=== PATIENT | female | born 1975 | race Caucasian/White ===

== ENCOUNTER 2020-10-02 00:47 | Emergency (ER) | payer MEDICARE, MEDICAID, SELFPAY ==
[2020-10-02 00:54] VITALS: BP 98/64; PULSE 76; RESP 15; TEMP 36.7; O2SAT 98; BMI 21.7
--- NOTE | 2020-10-02 00:59 | CTR_ITS ---
PROCEDURE INFORMATION: Exam: CT Head Without Contrast Exam date and time: 10/02/2020 1:04 AM Age: 45 years old Clinical indication: Altered mental status/memory loss; Patient HX: AMS. Weakness. Hypotensive. TECHNIQUE: Imaging protocol: Computed tomography of the head without contrast. Radiation optimization: All CT scans at this facility use at least one of these dose optimization techniques: automated exposure control; mA and/or kV adjustment per patient size (includes targeted exams where dose is matched to clinical indication); or iterative reconstruction. COMPARISON: No relevant prior studies available. RADIATION DOSE METRICS: Total DLP (mGy-cm): 800.72 FINDINGS: Brain: Normal. No hemorrhage. Unremarkable white matter. No mass effect. Cerebral ventricles: No ventriculomegaly. Bones/joints: No acute findings. Paranasal sinuses: Paranasal sinus mucosal thickening noted. Mastoid air cells: Visualized mastoid air cells are well aerated. Soft tissues: Unremarkable. CT/CT head wo con* [id number] IMPRESSION: No acute intracranial abnormality. Radiation Dose CTDIVOL = (mGy): DLP = 800.72 (mGy-cm)
--- NOTE | 2020-10-02 00:59 | XRR_ITS ---
PROCEDURE INFORMATION: Exam: XR Chest Exam date and time: 10/02/2020 1:04 AM Age: 45 years old Clinical indication: Other: AMS; Additional info: SOB TECHNIQUE: Imaging protocol: XR of the chest. Views: 1 view. COMPARISON: CR Chest 1 [place] [id number] 04/24/2017 8:05 PM FINDINGS: Lungs: Calcified pulmonary granulomatous change. Pleural spaces: Unremarkable. No pleural effusion. No pneumothorax. Heart/Mediastinum: Calcified granulomatous changes are noted in mediastinal and hilar lymph nodes. Bones/joints: Proximal left humerus fracture does not appear displaced on frontal view of chest. Soft tissues: Soft tissue or fluid convexity or prominence of right heart border; relative change from prior study may relate to some rotation to the right and short interval follow-up using PA and lateral views recommended. XR/XR chest 1V portable [id number] IMPRESSION: Proximal left humerus fracture. Contour bulge at right pericardiophrenic angle as above possibly new or more accentuated from prior study possibly as result of rotation to the right; follow-up PA and lateral views recommended.
--- NOTE | 2020-10-02 01:01 | ECG_ITS ---
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 Measurements Intervals Lerna Rate: 72 P: 62 NC: 159 QRS: 63 QRSD: 84 T: 65 QT: 380 QTc: 416 Interpretive Statements SINUS RHYTHM Compared to ECG 02/07/2017 05:44:54 T-wave abnormality no longer present Possible ischemia no longer present Electronically Signed On 10-02-2020 19:26:34 CDT by Orestes Montoya M.D. [email or web address]
--- NOTE | 2020-10-02 01:09 | XRR_ITS ---
PROCEDURE INFORMATION: Exam: XR Left Shoulder Exam date and time: 10/02/2020 1:09 AM Age: 45 years old Clinical indication: Shoulder; Left; Patient HX: Patient states fall last Tuesday. C/O pain. Unable to ambulate arm. Best films obtained. ; Additional info: Injury TECHNIQUE: Imaging protocol: XR Left shoulder. Views: 2 or more views. COMPARISON: No relevant prior studies available. FINDINGS: Bones/joints: Nondisplaced fracture of surgical neck of left humerus noted. Mild inferior subluxation at glenohumeral joint. Soft tissues: Normal. XR/XR shoulder LT min 2V* [id number] IMPRESSION: Proximal humeral fracture and mild inferior glenohumeral subluxation
--- NOTE | 2020-10-02 01:28 | XRR_ITS ---
PROCEDURE INFORMATION: Exam: XR Right Foot Exam date and time: 10/02/2020 1:31 AM Age: 45 years old Clinical indication: Foot; Right; Patient HX: C/O pain; Additional info: Fall TECHNIQUE: Imaging protocol: XR Right foot. Views: 3 or more views. COMPARISON: No relevant prior studies available. FINDINGS: Bones/joints: Normal. Soft tissues: Normal. XR/XR foot RT min 3V* [id number] IMPRESSION: No acute findings.
--- NOTE | 2020-10-02 01:28 | XRR_ITS ---
PROCEDURE INFORMATION: Exam: XR Right Ankle Exam date and time: 10/02/2020 1:31 AM Age: 45 years old Clinical indication: Ankle; Right; Patient HX: C/O pain; Additional info: Fall TECHNIQUE: Imaging protocol: XR Right ankle. Views: 3 or more views. COMPARISON: No relevant prior studies available. FINDINGS: Bones/joints: Mild irregularity of the cortical contour laterally at lateral malleolus raises suggestion of age-indeterminate nondisplaced fracture. No ankle mortise disruption. Soft tissues: Soft tissue swelling seen over lateral malleolus. XR/XR ankle RT min 3V* [id number] IMPRESSION: Findings suggesting age-indeterminate nondisplaced fracture changes laterally at lateral malleolus.
[2020-10-02 01:33] LABS: Glucose Point of Care 207 mg/dL (70-110)
[2020-10-02 01:36] LABS: ABG PCO2 41.9 mmHg (35-45); ABG PH Result 7.48 (7.35-7.45); Arterial Blood Gas Hematocrit 27.9 % (37-47); Base Excess ABG 6.8 mmol/L (-2.0-2.0); Blood Gas Sample Site Brachial, right; Blood Gas Sample Type Arterial; Oxygen Device ROOM AIR; PO2 ABG 78.8 mmHg (80.0-100.0)
[2020-10-02 01:37] VITALS: BP 118/80; PULSE 88; RESP 16; TEMP 36.7; O2SAT 99
[2020-10-02 01:45] VITALS: PULSE 86
--- NOTE | 2020-10-02 02:29 | ED_ITS ---
HPI - Weakness General: Chief complaint: Weakness Stated complaint: HYPOTENSION Time Seen by Provider: 10/02/20 00:54 Source: patient and EMS Mode of arrival: EMS Limitations: no limitations History of Present Illness: HPI Narrative: 45-year-old female who is here from local halfway. Patient states she is serving last day of her sentence which is a week long sentence. She states that today her blood sugars ran high and she felt weak and fell. She denies passing out. States she landed on her left shoulder and has left shoulder pain she rates a 7 out of 10. She also has some ankle pain in her right ankle. She denies any chest or abdominal pain. Denies any neck pain. Denies any fever. Associated symptoms: Denies chest pain, chills, dysuria, easy bruising, fever(s), headache(s), nausea or vomiting Review of Systems Const: Denies: fever(s), chills, body aches or change in appetite Eyes: Denies: blurry vision or eye discomfort ENMT: Denies: throat pain or dental pain Card: Denies: chest pain Resp: Denies: dyspnea GI: Denies: abdominal pain, nausea, vomiting or diarrhea : Denies: dysuria Musc: Reports: extremity pain; Denies: neck pain or back pain Skin/Breast: Denies: rash Neuro: Denies: headache(s) Psych: Denies: depression Jose/Lymph: Denies: easy bruising All/Imm: Denies: urticaria Physical Exam Const: COMMON NORMALS: no acute distress, patient oriented x3 and healthy appearing HENMT: COMMON NORMALS: normocephalic and atraumatic HEAD & SCALP: normocephalic and atraumatic Eye: COMMON NORMALS: Equal, round and reactive pupils present and EOMs intact bilaterally PUPIL: Yes Equal, round and reactive pupils present Neck/C-Spine: COMMON NORMALS: full ROM and supple Chest: COMMONS NORMALS: normal inspection of the chest and normal palpation of entire chest wall Resp: COMMON NORMALS: normal respiratory effort, No retractions, No use of accessory muscles and clear to auscultation bilaterally AUSCULTATION: clear to auscultation bilaterally Cardio: COMMON NORMALS: regular rate, regular rhythm and No murmurs present (Cardio) RATE: regular rate RHYTHM: regular rhythm GI: COMMON NORMALS: Normal to inspection, nondistended, normoactive bowel sounds present, Soft to palpation, non-tender and no masses PALPATION: Yes Soft to palpation Extremity: NARRATIVE EXTREMITY EXAM: Patient has some tenderness over the lateral portion of her right ankle no obvious deformity or swelling. Patient also has tenderness to the left shoulder. Distal pulses intact. No step-off Neuro: COMMON NORMALS: patient oriented x3, moves all extremities and no focal motor deficits Psych: COMMON NORMALS: mental status grossly normal, Normal thought process pr esent and cooperative THOUGHT PROCESS: Normal thought process present Skin: COMMON NORMALS: no rashes or lesions noted and no wounds GENERAL SKIN EXAM: no rashes or lesions noted Course Vital Signs: Vital signs: Vital Signs Temperature 98.1 F 10/02/20 00:54 Pulse Rate 76 10/02/20 00:54 Respiratory Rate 18 10/02/20 05:00 Blood Pressure 98/64 10/02/20 00:54 Pulse Oximetry 98 10/02/20 05:00 MDM - Weakness MDM Narrative: Medical decision making narrative: Presents here with a fall from gel. She does have an ankle fracture along with a humerus fracture from her fall. Her head CT here is normal. She has no other signs of injuries. Her blood pressure here has been stable and her blood work is all stable as well. Patient slightly anemic but no signs of active bleeding or blood pressures here been normal. No chest or abdominal pain noted. Patient placed in a sling for her humerus and placed in a splint for her ankle fracture. She is requesting discharge at this point as she is released from halfway. Patient discharged with family and she is to follow-up with peds. She understands agrees to plan. Lab Data: Labs: Lab Results 10/02/20 10/02/20 10/02/20 Range/Units 01:25 01:27 03:08 WBC 10.1 H (4.0-10.0) 10^3/ uL RBC 3.39 L (4.1-5.3) 10^6/u L Hgb 8.9 L (11.5-15.3) g/dL Hct 26.5 L (37.0-47.0) % MCV 78.2 L (81-99) fL MCH 26.3 L (28.0-34.0) pg MCHC 33.6 (30.0-36.0) g/dL RDW 13.5 (12.1-15.1) % Plt Count 180 (130-400) 10^3/c mm MPV 10.3 (7.4-10.4) fL Neut % (Auto) 64.0 % Lymph % (Auto) 22.7 % Alpine % (Auto) 11.4 % Eos % (Auto) 1.0 % Baso % (Auto) 0.4 % Neut # (Auto) 6.45 (1.8-7.7) 10^3/u L Lymph # (Auto) 2.3 (0.8-4.8) 10^3/u L Alpine # (Auto) 1.2 H (0.2-0.9) 10^3/u L Eos # (Auto) 0.1 (0.0-0.8) 10^3/u L Baso # (Auto) 0.0 (0.0-0.1) 10^3/u L Nucleated RBC % (a uto) 0 % Nucleated RBCs # 0.0 /100WBC Specimen Type Arterial Sample Site Brachial, right ABG pH 7.48 H (7.35-7.45) ABG pCO2 41.9 (35-45) mmHg ABG pO2 78.8 L (80.0-100.0) mmH g ABG HCO3 31.0 H (22-26) mmol/L ABG Base Excess 6.8 H (-2.0-2.0) mmol/ L Ricardo Test N/a Hematocrit 27.9 L (37-47) % O2 Delivery Device Room air FiO2 21.0 % Financial Sales Manager ID Jlg Sodium (136-145) mmol/L Potassium (3.5-5.1) mmol/L Chloride (98-107) mmol/L Carbon Dioxide (22-29) mmol/L Anion Gap (5-19) BUN (6-20) mg/dL Creatinine (0.5-0.9) mg/dL GFR Calculation (90-130) mL/min Glucose (65-115) mg/dL POC Glucose 207 H (70-110) mg/dL Calculated Osmolal ity (285-295) mOsm/k g Lactate (0.5-2.2) mmol/L Calcium (8.5-10.5) mg/dL Magnesium (1.7-2.3) mg/dL Total Bilirubin (0.15-1.2) mg/dL AST (0-32) U/L ALT (0-33) U/L Alkaline Phosphata se (35-105) IU/L Total Protein (6.6-8.7) g/dL Albumin (3.5-5.2) g/dL Globulin (1.3-4.6) g/dL Ethyl Alcohol (0-10) mg/dL Serum Ketones (Negative) 10/02/20 10/02/20 10/02/20 Range/Units 03:08 03:08 03:08 WBC (4.0-10.0) 10^3/ uL RBC (4.1-5.3) 10^6/u L Hgb (11.5-15.3) g/dL Hct (37.0-47.0) % MCV (81-99) fL MCH (28.0-34.0) pg MCHC (30.0-36.0) g/dL RDW (12.1-15.1) % Plt Count (130-400) 10^3/c mm MPV (7.4-10.4) fL Neut % (Auto) % Lymph % (Auto) % Alpine % (Auto) % Eos % (Auto) % Baso % (Auto) % Neut # (Auto) (1.8-7.7) 10^3/u L Lymph # (Auto) (0.8-4.8) 10^3/u L Alpine # (Auto) (0.2-0.9) 10^3/u L Eos # (Auto) (0.0-0.8) 10^3/u L Baso # (Auto) (0.0-0.1) 10^3/u L Nucleated RBC % (a uto) % Nucleated RBCs # /100WBC Specimen Type Sample Site ABG pH (7.35-7.45) ABG pCO2 (35-45) mmHg ABG pO2 (80.0-100.0) mmH g ABG HCO3 (22-26) mmol/L ABG Base Excess (-2.0-2.0) mmol/ L Ricardo Test Hematocrit (37-47) % O2 Delivery Device FiO2 % Financial Sales Manager ID Sodium 134 L (136-145) mmol/L Potassium 3.7 (3.5-5.1) mmol/L Chloride 98 (98-107) mmol/L Carbon Dioxide 28 (22-29) mmol/L Anion Gap 11.7 (5-19) BUN 13 (6-20) mg/dL Creatinine 0.7 (0.5-0.9) mg/dL GFR Calculation 89.7 L (90-130) mL/min Glucose 221 H (65-115) mg/dL POC Glucose (70-110) mg/dL Calculated Osmolal ity 285 (285-295) mOsm/k g Lactate 0.6 (0.5-2.2) mmol/L Calcium 7.9 L (8.5-10.5) mg/dL Magnesium 1.9 (1.7-2.3) mg/dL Total Bilirubin 0.5 (0.15-1.2) mg/dL AST 8 (0-32) U/L ALT 6 (0-33) U/L Alkaline Phosphata se 113 H (35-105) IU/L Total Protein 6.0 L (6.6-8.7) g/dL Albumin 2.6 L (3.5-5.2) g/dL Globulin 3.4 (1.3-4.6) g/dL Ethyl Alcohol < 10 (0-10) mg/dL Serum Ketones Negative (Negative) 10/02/20 Range/Units 03:32 WBC (4.0-10.0) 10^3/ uL RBC (4.1-5.3) 10^6/u L Hgb (11.5-15.3) g/dL Hct (37.0-47.0) % MCV (81-99) fL MCH (28.0-34.0) pg MCHC (30.0-36.0) g/dL RDW (12.1-15.1) % Plt Count (130-400) 10^3/c mm MPV (7.4-10.4) fL Neut % (Auto) % Lymph % (Auto) % Alpine % (Auto) % Eos % (Auto) % Baso % (Auto) % Neut # (Auto) (1.8-7.7) 10^3/u L Lymph # (Auto) (0.8-4.8) 10^3/u L Alpine # (Auto) (0.2-0.9) 10^3/u L Eos # (Auto) (0.0-0.8) 10^3/u L Baso # (Auto) (0.0-0.1) 10^3/u L Nucleated RBC % (a uto) % Nucleated RBCs # /100WBC Specimen Type Sample Site ABG pH (7.35-7.45) ABG pCO2 (35-45) mmHg ABG pO2 (80.0-100.0) mmH g ABG HCO3 (22-26) mmol/L ABG Base Excess (-2.0-2.0) mmol/ L Ricardo Test Hematocrit (37-47) % O2 Delivery Device FiO2 % Financial Sales Manager ID Sodium (136-145) mmol/L Potassium (3.5-5.1) mmol/L Chloride (98-107) mmol/L Carbon Dioxide (22-29) mmol/L Anion Gap (5-19) BUN (6-20) mg/dL Creatinine (0.5-0.9) mg/dL GFR Calculation (90-130) mL/min Glucose (65-115) mg/dL POC Glucose 220 H (70-110) mg/dL Calculated Osmolal ity (285-295) mOsm/k g Lactate (0.5-2.2) mmol/L Calcium (8.5-10.5) mg/dL Magnesium (1.7-2.3) mg/dL Total Bilirubin (0.15-1.2) mg/dL AST (0-32) U/L ALT (0-33) U/L Alkaline Phosphata se (35-105) IU/L Total Protein (6.6-8.7) g/dL Albumin (3.5-5.2) g/dL Globulin (1.3-4.6) g/dL Ethyl Alcohol (0-10) mg/dL Serum Ketones (Negative) Imaging Data^: CT Head: Radiologist's impression: [address] [address] [address] Scan Report Signed Patient: Audrey Bentley I Unit #: [id number] : 1975 Age/Sex: 45 / F ADM Date: 10/02/20 Loc: ER Room/Bed: Attending Dr: Ordering Provider/Ordering MD: Amarjit Resendez MD Date of Service: 10/02/20 Procedure(s): CT head wo con* [id number] Accession Number(s): [id number] Report Number: [id number] PROCEDURE INFORMATION: Exam: CT Head Without Contrast Exam date and time: 10/02/2020 1:04 AM Age: 45 years old Clinical indication: Altered mental status/memory loss; Patient HX: AMS. Weakness. Hypotensive. TECHNIQUE: Imaging protocol: Computed tomography of the head without contrast. Radiation optimization: All CT scans at this facility use at least one of these dose optimization techniques: automated exposure control; mA and/or kV adjustment per patient size (includes targeted exams where dose is matched to clinical indication); or iterative reconstruction. COMPARISON: No relevant prior studies available. RADIATION DOSE METRICS: Total DLP (mGy-cm): 800.72 FINDINGS: Brain: Normal. No hemorrhage. Unremarkable white matter. No mass effect. Cerebral ventricles: No ventriculomegaly. Bones/joints: No acute findings. Paranasal sinuses: Paranasal sinus mucosal thickening noted. Mastoid air cells: Visualized mastoid air cells are well aerated. Soft tissues: Unremarkable. CT/CT head wo con* [id number] IMPRESSION: No acute intracranial abnormality. CXR: Radiologist's impression: [address] [address] XRay Report Signed Patient: Audrey Bentley I Unit #: [id number] : 1975 Age/Sex: 45 / F ADM Date: 10/02/20 Loc: ER Room/Bed: Attending Dr: Ordering Provider/Ordering MD: Amarjit Resendez MD Date of Service: 10/02/20 Procedure(s): XR chest 1V portable [id number] Accession Number(s): [id number] Report Number: [id number] PROCEDURE INFORMATION: Exam: XR Chest Exam date and time: 10/02/2020 1:04 AM Age: 45 years old Clinical indication: Other: AMS; Additional info: SOB TECHNIQUE: Imaging protocol: XR of the chest. Views: 1 view. COMPARISON: CR Chest 1 [place] [id number] 04/24/2017 8:05 PM FINDINGS: Lungs: Calcified pulmonary granulomatous change. Pleural spaces: Unremarkable. No pleural effusion. No pneumothorax. Heart/Mediastinum: Calcified granulomatous changes are noted in mediastinal and hilar lymph nodes. Bones/joints: Proximal left humerus fracture does not appear displaced on frontal view of chest. Soft tissues: Soft tissue or fluid convexity or prominence of right heart border; relative change from prior study may relate to some rotation to the right and short interval follow-up using PA and lateral views recommended. XR/XR chest 1V portable [id number] IMPRESSION: Proximal left humerus fracture. Contour bulge at right pericardiophrenic angle as above possibly new or more accentuated from prior study possibly as result of rotation to the right; follow-up PA and lateral views recommended. xr l shoulder: Radiologist's impression: [address] [place] [address] XRay Report Signed Patient: Audrey Bentley I Unit #: [id number] : 1975 Age/Sex: 45 / F ADM Date: 10/02/20 Loc: ER Room/Bed: Attending Dr: Ordering Provider/Ordering MD: Amarjit Resendez MD Date of Service: 10/02/20 Procedure(s): XR shoulder LT min 2V* [id number] Accession Number(s): [id number] Report Number: [id number] PROCEDURE INFORMATION: Exam: XR Left Shoulder Exam date and time: 10/02/2020 1:09 AM Age: 45 years old Clinical indication: Shoulder; Left; Patient HX: Patient states fall last Tuesday. C/O pain. Unable to ambulate arm. Best films obtained. ; Additional info: Injury TECHNIQUE: Imaging protocol: XR Left shoulder. Views: 2 or more views. COMPARISON: No relevant prior studies available. FINDINGS: Bones/joints: Nondisplaced fracture of surgical neck of left humerus noted. Mild inferior subluxation at glenohumeral joint. Soft tissues: Normal. XR/XR shoulder LT min 2V* [id number] IMPRESSION: Proximal humeral fracture and mild inferior glenohumeral subluxation xr right foot: Radiologist's impression: [facility] [address] [place] [address] XRay Report Signed Patient: Audrey Bentley I Unit #: [id number] : 1975 Age/Sex: 45 / F ADM Date: 10/02/20 Loc: ER Room/Bed: Attending Dr: Ordering Provider/Ordering MD: Amarjit Resendez MD Date of Service: 10/02/20 Procedure(s): XR foot RT min 3V* [id number] Accession Number(s): [id number] Report Number: [id number] PROCEDURE INFORMATION: Exam: XR Right Foot Exam date and time: 10/02/2020 1:31 AM Age: 45 years old Clinical indication: Foot; Right; Patient HX: C/O pain; Additional info: Fall TECHNIQUE: Imaging protocol: XR Right foot. Views: 3 or more views. COMPARISON: No relevant prior studies available. FINDINGS: Bones/joints: Normal. Soft tissues: Normal. XR/XR foot RT min 3V* [id number] IMPRESSION: No acute findings. xr r ankle: Radiologist's impression: [address] [place] [address] XRay Report Signed Patient: Audrey Bentley I Unit #: [id number] : 1975 Age/Sex: 45 / F ADM Date: 10/02/20 Loc: ER Room/Bed: Attending Dr: Ordering Provider/Ordering MD: Amarjit Resendez MD Date of Service: 10/02/20 Procedure(s): XR ankle RT min 3V* [id number] Accession Number(s): [id number] Report Number: [id number] PROCEDURE INFORMATION: Exam: XR Right Ankle Exam date and time: 10/02/2020 1:31 AM Age: 45 years old Clinical indication: Ankle; Right; Patient HX: C/O pain; Additional info: Fall TECHNIQUE: Imaging protocol: XR Right ankle. Views: 3 or more views. COMPARISON: No relevant prior studies available. FINDINGS: Bones/joints: Mild irregularity of the cortical contour laterally at lateral malleolus raises suggestion of age-indeterminate nondisplaced fracture. No ankle mortise disruption. Soft tissues: Soft tissue swelling seen over lateral malleolus. XR/XR ankle RT min 3V* [id number] IMPRESSION: Findings suggesting age-indeterminate nondisplaced fracture changes laterally at lateral malleolus. Discharge Plan Discharge Patient Disposition: Home Clinical Impression: Closed left humeral fracture Qualifiers: Encounter type: initial encounter Humerus Location: proximal Fracture morphology: unspecified fracture morphology Qualified Code(s): S42.202A - Unspecified fracture of upper end of left humerus, initial encounter for closed fracture Ankle fracture, right Qualifiers: Encounter type: initial encounter Fracture type: closed Qualified Code(s): S82.891A - Other fracture of right lower leg, initial encounter for closed fracture Condition: Stable Prescriptions: New hydrocodone-acetaminophen 5-325 mg tablet 1 tab PO Q6H PRN (Reason: pain) Qty: 14 RF: 0 Discharge Orders: Discharge ED (Routine); Ordered 10/02/20 Ordered By: Amarjit Resendez Referrals: Anali Luciano FNP [Primary Care Provider] - Saurabh Villela MD [Physician] - 1-3 days Discharge Diet: Advance as tolerated Discharge Activity: Resume usual activity Patient Instructions: Arm Fracture in Children (ED), Opioid Safety Coding Level of Care Code ED Teacher [employer] Emotionally Disturbed for Nellie Carbone
[2020-10-02 03:17] LABS: Basophils % 0.4 %; Eosinophils # 0.1 10^3/uL (0.0-0.8); Hematocrit 26.5 % (37.0-47.0); Hemoglobin 8.9 g/dL (11.5-15.3); Lymphocytes # 2.3 10^3/uL (0.8-4.8); Lymphocytes % 22.7 %; Mean Corpuscular HGB Conc 33.6 g/dL (30.0-36.0); Mean Corpuscular Hemoglobin 26.3 pg (28.0-34.0); Mean Corpuscular Volume 78.2 fL (81-99); Mean Platelet Volume 10.3 fL (7.4-10.4); Monocytes # 1.2 10^3/uL (0.2-0.9); Monocytes % 11.4 %; Neutrophils # 6.45 10^3/uL (1.8-7.7); Nucleated Red Blood Cells % 0 %; Platelet Count 180 10^3/cmm (130-400); Red Blood Count 3.39 10^6/uL (4.1-5.3); Red Cell Distribution Width 13.5 % (12.1-15.1); White Blood Count 10.1 10^3/uL (4.0-10.0)
[2020-10-02 03:25] LABS: Ketone (Acetest) Serum Negative (Negative)
[2020-10-02 03:30] VITALS: BP 110/72; PULSE 81; RESP 18; TEMP 36.6; O2SAT 99
[2020-10-02 03:34] LABS: Alanine Aminotransferase 6 U/L (0-33); Albumin Level 2.6 g/dL (3.5-5.2); Alkaline Phosphatase 113 IU/L (35-105); Anion Gap 11.7 (5-19); Aspartate Amino Transferase 8 U/L (0-32); Blood Urea Nitrogen 13 mg/dL (6-20); Calcium 7.9 mg/dL (8.5-10.5); Carbon Dioxide 28 mmol/L (22-29); Chloride 98 mmol/L (98-107); Globulin 3.4 g/dL (1.3-4.6); Glomerular Filtration Rate 89.7 mL/min (90-130); Glucose 221 mg/dL (65-115); Lactate (Lactic Acid level) 0.6 mmol/L (0.5-2.2); Magnesium 1.9 mg/dL (1.7-2.3); Osmolality Calculated 285 mOsm/kg (285-295); Potassium 3.7 mmol/L (3.5-5.1); Sodium 134 mmol/L (136-145); Total Bilirubin 0.5 mg/dL (0.15-1.2)
[2020-10-02 03:35] LABS: Alcohol Level < 10 mg/dL (0-10)
[2020-10-02 03:41] LABS: Glucose Point of Care 220 mg/dL (70-110)
[2020-10-02] MEDS: sodium chloride 0.9% 1,000 ML 999 ML IV (04:10)
[2020-10-02 05:00] VITALS: BP 102/76; BP 106/70; PULSE 75; PULSE 78; RESP 16; RESP 18; TEMP 36.6; TEMP 36.7; O2SAT 98; O2SAT 99
[2020-10-02] MEDS: morphine 4 mg/mL SDV 1 mL IVP (05:00)
[2020-10-02 05:58] LABS: Glucose Point of Care 245 mg/dL (70-110)
--- NOTE | 2020-10-02 07:56 | PC.NURSE ---
0430: Pt refused crutches, states How in the fuck am I supposed to use crutches? Fuck no, I don't want crutches
--- NOTE | 2020-10-02 07:58 | PC.NURSE ---
0500 Pt is now discharged. This RN called number provided by patient for ride home. Pt tolerated left arm sling and right splint application without difficultly. Pulses strong prior to and post sling and splint applications. Pt states that her pain is much better now. Pt was discharged to waiting room to await ride. Low carb/sugar sack lunch given. Pt states that she will give her own insulin to cover what she eats after being discharged, she has her insulin in her belongings.
--- NOTE | 2020-10-02 11:29 | DCPLANNER ---
Addendum entered by Simi Bentley 10/15/20 15:33: scale manager spoke with Dian at ortho to confirm if a follow up appointment had been scheduled for patient. Case chica was told that patient followed up in the area that she lives. Original Note: scale manager had message to schedule a follow up appointment for patient with ortho for a humerus fracture. scale manager called the ortho clinic, spoke with Tarah, gave clinic patients information. scale manager was told that patients information would be printed and reviewed. Clinic will call patient with appointment information.
== END 2020-10-02 05:00 | disposition home or self-care (01) ==
PROVIDERS: Emergency Provider Emergency Medicine; PCP Nurse Practitioner
DX: S42.202A Unspecified fracture of upper end of left humerus, initial encounter for closed fracture (principal); S82.891A Other fracture of right lower leg, initial encounter for closed fracture; W19.XXXA Unspecified fall, initial encounter; Y92.143 Cell of prison as the place of occurrence of the external cause
CPT/HCPCS: 29240; 29515; 36416; 36600; 70450; 71045; 73030; 73610; 73630; 80053; 80307; 82009; 82803; 82962; 83605; 83735; 85025; 93005; 96361; 96374; 99284; J2270; J7030